=== PATIENT | female | born 1985 | race Caucasian/White ===

== ENCOUNTER → 2023-04-15 | Outpatient (CLI) | payer OTHER ==
[2023-04-15 14:51] LABS: FOLLICLE STIMULATING HORMONE 10.6 mIU/ML; LUTEINIZING HORMONE 8.2 mIU/ML
== END ==
LOC: M LAB 13:54
PROVIDERS: ATTEND Obstetrics & Gynecology Reproductive Endocrinology
DX: N97.9 Female infertility, unspecified (principal)